=== PATIENT | female | born 1980 ===

== ENCOUNTER 2016-10-20 18:42 | Emergency (ER) | payer OTHER ==
[2016-10-20 18:42] VITALS: BMI 40.3
[2016-10-20 21:06] VITALS: PULSE 77; RESP 18; O2SAT 99
[2016-10-20 21:46] LABS: URINE BACTERIA RARE (<OCC); URINE BILIRUBIN NEGATIVE (NEGATIVE); URINE BLOOD NEGATIVE (NEGATIVE); URINE COLOR Straw (YELLOW); URINE GLUCOSE (UA) NORMAL (Normal); URINE KETONE NEGATIVE (NEGATIVE); URINE LEUKOCYTE ESTERASE NEG Leu/uL (Negative); URINE PROTEIN NEGATIVE (NEGATIVE); URINE UROBILINOGEN NORMAL mg/dL (0.2-1.0)
[2016-10-20 23:19] VITALS: BP 140/70; TEMP 98
== END 2016-10-20 22:30 | disposition home or self-care (01) ==
LOC: C.ER 18:42
DX: N94.10 Unspecified dyspareunia (principal); R10.2 Pelvic and perineal pain

== ENCOUNTER 2016-12-04 13:11 | Emergency (ER) | payer OTHER ==
[2016-12-04 13:11] VITALS: BMI 40.3
--- NOTE | 2016-12-04 14:51 | C.PDOC ---
Time Seen by Provider: 12/04/16 13:44 Chief Complaint (Nursing): Abdominal Pain Past Medical History Vital Signs: Last Vital Signs Temp 98.6 F 12/04/16 13:27 Pulse 80 12/04/16 13:27 Resp 16 12/04/16 13:27 BP 141/81 12/04/16 13:27 Pulse Ox 98 12/04/16 13:27 - Medical History PMH: HTN (TAKES NO MEDS) Denies: Chronic Kidney Disease Family History: States: Unknown Family Hx - Social History Hx Tobacco Use: No Hx Alcohol Use: No Hx Substance Use: No - Immunization History Hx Tetanus Toxoid Vaccination: No Hx Influenza Vaccination: No Hx Pneumococcal Vaccination: No ED Course And Treatment O2 Sat by Pulse Oximetry: 98
[2016-12-04 15:34] LABS: SQUAMOUS EPITHIAL 1 /hpf (0-5); URINE BILIRUBIN NEGATIVE (NEGATIVE); URINE BLOOD NEGATIVE (NEGATIVE); URINE CLARITY Clear (Clear); URINE COLOR Yellow (YELLOW); URINE GLUCOSE (UA) NORMAL (Normal); URINE LEUKOCYTE ESTERASE NEG Leu/uL (Negative); URINE NITRATE NEGATIVE (NEGATIVE); URINE PROTEIN NEGATIVE (NEGATIVE); URINE UROBILINOGEN NORMAL mg/dL (0.2-1.0)
[2016-12-04 15:37] LABS: HCG,QUALITATIVE URINE NEGATIVE (NEGATIVE)
[2016-12-04 15:42] LABS: BASO # 0.1 K/uL (0.0-0.2); BASO % 1.3 % (0.0-2.0); EOS # 0.1 K/uL (0.0-0.7); EOS % 1.3 % (0.0-4.0); HEMOGLOBIN 11.7 g/dL (11.0-16.0); LYMPH # 1.5 K/uL (1.0-4.3); LYMPH % 35.9 % (20.0-40.0); MEAN CELL VOLUME 86.8 fL (81.0-99.0); MEAN CORPUSCULAR HEMOGLOBIN 27.4 pg (27.0-31.0); MEAN CORPUSCULAR HGB CONC 31.6 g/dL (33.0-37.0); MEAN PLATELET VOLUME 9.7 fL (7.2-11.7); MONO # 0.4 K/uL (0.0-0.8); MONO % 10.2 % (0.0-10.0); NEUT # 2.1 K/uL (1.8-7.0); NEUT % 51.3 % (50.0-75.0); NRBC % 0.1 % (0.0-2.0); RBC 4.26 Mil/uL (3.80-5.20); RED CELL DISTRIBUTION WIDTH 13.6 % (11.5-14.5); WHITE BLOOD COUNT 4.1 K/uL (4.8-10.8)
[2016-12-04 15:49] LABS: ALBUMIN 3.5 g/dL (3.5-5.0)
[2016-12-04 15:52] LABS: ALT/SGPT 23 U/L (9-52); AST/SGOT 17 U/L (14-36); BLOOD UREA NITROGEN 19 mg/dL (7-17); GFR AFRICAN-AMERICAN > 60; GFR NON-AFRICAN AMERICAN > 60
[2016-12-04 15:53] LABS: CALCIUM 8.3 mg/dl (8.6-10.4)
--- NOTE | 2016-12-04 16:19 | C.PDOC ---
History Of Present Illness Patient is a 36 y/o female that presents to the ED for evaluation of abnormal vaginal bleeding for the last several weeks. Patient reports being seen by OBGYN , and was started on control medication but pt states her bleeding still continues. Notes having ultrasound done at the time which shows she has fibroids. Patient also reports having associated lower abdominal cramping. Pt also reports taking Naprosyn for pain with no relief. Otherwise, denies any n/v/ d, back pain, urinary symptoms, fever, chills, or any other associated symptoms at this time. Time Seen by Provider: 12/04/16 13:44 Chief Complaint (Nursing): Abdominal Pain History Per: Patient History/Exam Limitations: no limitations Onset/Duration Of Symptoms: Days (several weeks) Current Symptoms Are (Timing): Still Present Radiation Of Pain To:: None Quality Of Discomfort: Cramping, "Pain" Associated Symptoms: denies: Fever, Chills, Nausea, Vomiting, Diarrhea, Loss Of Appetite, Back Pain, Chest Pain, Constipation, Urinary Symptoms Exacerbating Factors: None Alleviating Factors: None Recent travel outside of the [place]: No Additional History Per: Patient Abnormal Vaginal Bleeding: Yes Past Medical History Reviewed: Historical Data, Nursing Documentation, Vital Signs Vital Signs: Last Vital Signs Temp 98.6 F 12/04/16 13:27 Pulse 80 12/04/16 13:27 Resp 16 12/04/16 13:27 BP 141/81 12/04/16 13:27 Pulse Ox 98 12/04/16 16:22 - Medical History PMH: HTN (TAKES NO MEDS) Denies: Chronic Kidney Disease Family History: States: Unknown Family Hx - Social History Hx Tobacco Use: No Hx Alcohol Use: No Hx Substance Use: No - Immunization History Hx Tetanus Toxoid Vaccination: No Hx Influenza Vaccination: No Hx Pneumococcal Vaccination: No Review Of Systems Except As Marked, All Systems Reviewed And Found Negative. Constitutional: Negative for: Fever, Chills Gastrointestinal: Positive for: Abdominal Pain (lower abdomen). Negative for: Nausea, Vomiting, Diarrhea, Constipation Genitourinary: Positive for: Vaginal Bleeding. Negative for: Dysuria, Frequency , Hematuria Musculoskeletal: Negative for: Back Pain Physical Exam - Physical Exam Appears: Non-toxic, No Acute Distress Skin: Normal Color, Warm, Dry Head: Atraumatic, Normacephalic Eye(s): bilateral: Normal Inspection, EOMI Neck: Normal ROM, Supple Chest: Symmetrical, No Tenderness Cardiovascular: Rhythm Regular, No Murmur Respiratory: Normal Breath Sounds, No Rales, No Rhonchi, No Wheezing Gastrointestinal/Abdominal: Soft, No Tenderness, No Guarding, No Rebound Extremity: Normal ROM, No Deformity Neurological/Psych: Oriented x3, Normal Speech, Normal Cognition ED Course And Treatment - Laboratory Results Result Diagrams: 12/04/16 15:34 12/04/16 15:34 Lab Interpretation: No Acute Changes O2 Sat by Pulse Oximetry: 98 (on RA) Pulse Ox Interpretation: Normal Progress Note: Labs ordered and reviewed. Disposition - Disposition Disposition: HOME/ ROUTINE Disposition Time: 16:24 Condition: STABLE Additional Instructions: Follow up with your release manager or the clinic if symptoms continue. Prescriptions: traMADol [Ultram] 50 mg PO TID PRN #10 tab PRN Reason: Pain, Severe (8-10) Instructions: Uterine Fibroids (ED) Print Language: TRINIDADIAN - Clinical Impression Clinical Impression: Uterine fibroid, Dysfunctional uterine bleeding - Scribe Statement The provider has reviewed the documentation as recorded by the Angelaibrobbie Holland All medical record entries made by the Angelaibrobbie were at my direction and personally dictated by me. I have reviewed the chart and agree that the record accurately reflects my personal performance of the history, physical exam, medical decision making, and the department course for this patient. I have also personally directed, reviewed, and agree with the discharge instructions and disposition.
[2016-12-04 16:46] VITALS: BP 127/76; PULSE 77; RESP 18; TEMP 98; O2SAT 100
== END 2016-12-04 16:45 | disposition home or self-care (01) ==
LOC: C.ER 13:11
DX: D25.9 Leiomyoma of uterus, unspecified (principal); N93.8 Other specified abnormal uterine and vaginal bleeding

== ENCOUNTER 2016-12-26 09:16 | Day surgery (SDC) | payer OTHER, SELFPAY ==
[2016-12-20 12:54] VITALS: BMI 37.5
[2016-12-26] MEDS ORDERED: HYDROmorphone 0.5 mg/0.5 ml ISec IVP PRN (14:20)
[2016-12-26] MEDS ORDERED: Lactated Ringer's 1,000 ML IV ONE ×2 (14:20→16:30)
[2016-12-26] MEDS ORDERED: Propofol 10 mg/ml Inj (20 ML) ONE ×2 (14:27)
[2016-12-26] MEDS ORDERED: Midazolam 2 MG/2 ML VIAL ONE (14:32)
--- NOTE | 2016-12-26 15:04 | PCM.SURG1 ---
Surgeon's Initial Post Op Note - Surgeon's Notes Surgeon: Dr. Crum Geriatric Nurse Assistant: None Type of Anesthesia: General LMA Anesthesia Administered By: Dr. Finch Pre-Operative Diagnosis: 36 yo with Cervical polyp, submucosal leiomyoma, menorrhagia, irregular mentrual cycle and chronic pelvic pain Operative Findings: Cervical polyp 2 cm, Av uterus 12 wks gestation with Submucosal leiomyoma Post-Operative Diagnosis: Same as above Operation Performed: Polypectomy, Hysteroscopy Myomectomy, Fractional D and C Specimen/Specimens Removed: Cervical polyp, Submucous Leiomyoma, EMC, ECC Estimated Blood Loss: EBL {In ML}: 10 Blood Products Given: N/A Drains Used: No Drains Post-Op Condition: Good Date of Surgery/Procedure: 12/26/16 Time of Surgery/Procedure: 15:05
[2016-12-26 17:30] VITALS: RESP 18; O2SAT 96
[2016-12-26 18:01] VITALS: BP 119/69; PULSE 68; TEMP 97.8
--- NOTE | 2016-12-27 03:20 | OP ---
PROCEDURE DATE: 12/26/2016 PREOPERATIVE DIAGNOSES: A 36-year-old female with cervical polyp, submucosal leiomyoma, menorrhagia, irregular menstrual period and chronic pelvic pain. POSTOPERATIVE DIAGNOSES: A 36-year-old female with cervical polyp, submucosal leiomyoma, menorrhagia, irregular menstrual period and chronic pelvic pain. PROCEDURE: Polypectomy, hysteroscopy, myomectomy and fractional D and C. SURGEON: Dr. Geovanna Crum. ANESTHESIOLOGIST: Dr. Finch. TYPE OF ANESTHESIA: General LMA. FINDINGS: Anteverted uterus approximately 12 weeks gestation, admitted to have a submucosal leiomyoma as well as a cervical polyp. COMPLICATIONS: None. ESTIMATED BLOOD LOSS: 10 mL. IV FLUID INTAKE: 1000 mL. INTAKE AND OUTPUT: 400 mL. SPECIMEN: Cervical polyp, leiomyoma, EMC and ECC. DESCRIPTION OF PROCEDURE: The patient was informed of the risk factors, benefits and alternatives of the procedure. Risk factors included infection, bleeding, damage to the surrounding organs and tissues, complication from anesthesia and possible . After informed consent was obtained, she was then taken to the operating room, prepped and draped in normal sterile fashion, placed in the dorsal lithotomy position. A weighted speculum was placed in the vagina. The anterior lip of the cervix was grasped with single-tooth tenaculum. It was noted that she had a cervical polyp, a forceps was utilized to remove the cervical polyp. Several twisting were then removed. The cervical polyp was removed intact and submitted to pathology. In that particular entrance, the uterus was then dilated in which the scope was then introduced. It was noted and identified that she has a submucosal leiomyoma. The MyoSure device Reach was utilized in order to do the vaginal myomectomy. Under direct visualization, the submucosal leiomyoma was removed and excellent hemostasis was noted. Upon completion, the scope was then removed and a fractional D and C was then performed. The scope was reintroduced, making sure they were excellent with hemostasis. Upon completion, all instruments were removed from the vagina. Instrument and lap counts were correct x2. The patient was then taken to recovery room in stable condition and instructed to follow up in the office in approximately 2 weeks. Geovanna Crum MD [facility] # [id number]
== END 2016-12-26 18:00 | disposition home or self-care (01) ==
LOC: C.SDS 09:16
PROVIDERS: ATTEND Obstetrics & Gynecology
DX: D25.0 Submucous leiomyoma of uterus (principal); G89.29 Other chronic pain; N84.1 Polyp of cervix uteri; N92.0 Excessive and frequent menstruation with regular cycle
CPT/HCPCS: 58558; 88305; J1170; J2250; J2405; J2704; J3010; J7120

== ENCOUNTER 2017-04-18 11:35 | Emergency (ER) | payer SELFPAY ==
[2017-04-18 11:35] VITALS: BMI 37.5
[2017-04-18 11:54] VITALS: RESP 16; TEMP 98.8
[2017-04-18] MEDS ORDERED: Lactated Ringer's 1,000 ML IV ONE (12:36)
[2017-04-18 12:43] LABS: BASO % 0.7 % (0.0-2.0); EOS % 0.1 % (0.0-4.0); HEMATOCRIT 41.6 % (34.0-47.0); LYMPH # 0.9 K/uL (1.0-4.3); LYMPH % 20.8 % (20.0-40.0); MEAN CELL VOLUME 86.2 fL (81.0-99.0); MEAN CORPUSCULAR HEMOGLOBIN 28.6 pg (27.0-31.0); MEAN CORPUSCULAR HGB CONC 33.1 g/dL (33.0-37.0); MEAN PLATELET VOLUME 9.3 fL (7.2-11.7); MONO # 0.5 K/uL (0.0-0.8); MONO % 11.1 % (0.0-10.0); NRBC % 0.2 % (0.0-2.0); RED CELL DISTRIBUTION WIDTH 13.6 % (11.5-14.5); WHITE BLOOD COUNT 4.2 K/uL (4.8-10.8)
[2017-04-18] MEDS ORDERED: Lactated Ringer's 1,000 ML ONE (12:46)
[2017-04-18 12:47] LABS: URINE BILIRUBIN NEGATIVE (NEGATIVE); URINE COLOR Yellow (YELLOW); URINE GLUCOSE (UA) NORMAL (Normal); URINE KETONE NEGATIVE (NEGATIVE); URINE LEUKOCYTE ESTERASE NEG Leu/uL (Negative); URINE PROTEIN NEGATIVE (NEGATIVE); URINE UROBILINOGEN NORMAL mg/dL (0.2-1.0); WBC URINE 1 /hpf (0-5)
[2017-04-18 12:54] LABS: ALKALINE PHOSPHATASE 58 U/L (38-126); ALT/SGPT 29 U/L (9-52); AST/SGOT 20 U/L (14-36); BILIRUBIN,TOTAL 0.4 mg/dL (0.2-1.3); BLOOD UREA NITROGEN 10 mg/dL (7-17); CALCIUM 8.6 mg/dl (8.6-10.4); CARBON DIOXIDE 24 mmol/L (22-30); CHLORIDE 103 mmol/L (98-107); GFR AFRICAN-AMERICAN > 60; GLUCOSE,RANDOM 85 mg/dL (65-105); POTASSIUM 3.8 mmol/L (3.6-5.2); SODIUM 137 mmol/L (132-148); TOTAL PROTEIN 8.5 g/dL (6.3-8.3)
[2017-04-18 12:58] LABS: RBC URINE 5 /hpf (0-3); URINE BACTERIA RARE (<OCC)
[2017-04-18 12:58] LABS: INR 1.1
[2017-04-18 13:03] LABS: URINE BLOOD 1+ (NEGATIVE)
[2017-04-18 13:36] LABS: ALB/GLOB RATIO 0.9 (1.0-2.1)
--- NOTE | 2017-04-18 13:45 | C.PDOC ---
History Of Present Illness 36 year old female, whose PMHx includes fibroids and ovarian cysts, presents to the ED for evaluation of suprapubic abdominal pain which began around 1 week ago. Patient states she began her menstrual period on 04/10 and the bleeding has continued since its onset. She reports using around 3-5 pads per day. Patient also complains of generalized weakness and states she has found no relief from taking Tylenol and Advil. She denies fever, chills, nausea, vomiting , back pain, dysuria. Time Seen by Provider: 04/18/17 12:12 Chief Complaint (Nursing): Abdominal Pain History Per: Patient History/Exam Limitations: no limitations Onset/Duration Of Symptoms: Other (1 week ) Current Symptoms Are (Timing): Still Present Location Of Pain/Discomfort: Suprapubic Radiation Of Pain To:: None Quality Of Discomfort: "Pain" Associated Symptoms: denies: Fever, Chills, Nausea, Vomiting, Urinary Symptoms Additional History Per: Patient Abnormal Vaginal Bleeding: Yes Last Menstral Period: 04/10/17 Past Medical History Reviewed: Historical Data, Nursing Documentation, Vital Signs Vital Signs: Last Vital Signs Temp 98.8 F 04/18/17 11:38 Pulse 78 04/18/17 14:04 Resp 16 04/18/17 14:04 BP 136/74 04/18/17 14:04 Pulse Ox 98 04/18/17 14:04 - Medical History PMH: HTN (TAKES NO MEDS) Surgical History: No Surg Hx Family History: States: Unknown Family Hx - Social History Hx Tobacco Use: No Hx Alcohol Use: No Hx Substance Use: No - Immunization History Hx Tetanus Toxoid Vaccination: No Hx Influenza Vaccination: No Hx Pneumococcal Vaccination: No Review Of Systems Constitutional: Negative for: Fever, Chills Cardiovascular: Negative for: Chest Pain, Palpitations Respiratory: Negative for: Cough, Shortness of Breath Gastrointestinal: Positive for: Abdominal Pain (suprapubic). Negative for: Nausea, Vomiting Genitourinary: Positive for: Vaginal Bleeding. Negative for: Dysuria Musculoskeletal: Negative for: Back Pain Neurological: Negative for: Headache Physical Exam - Physical Exam Appears: Non-toxic, No Acute Distress Skin: Normal Color, Warm, Dry Head: Atraumatic, Normacephalic Eye(s): bilateral: Normal Inspection Oral Mucosa: Moist Neck: Supple Chest: Symmetrical, No Deformity, No Tenderness Cardiovascular: Rhythm Regular, No Murmur Respiratory: Normal Breath Sounds, No Rales, No Rhonchi, No Wheezing Gastrointestinal/Abdominal: Soft, Tenderness (suprapubic ), No Guarding, No Rebound Extremity: Normal ROM, Capillary Refill (less than 2 seconds ) Neurological/Psych: Oriented x3, Normal Speech, Normal Cognition Gait: Steady ED Course And Treatment - Laboratory Results Result Diagrams: 04/18/17 12:33 04/18/17 12:33 O2 Sat by Pulse Oximetry: 100 (on RA) Pulse Ox Interpretation: Normal Medical Decision Making Medical Decision Making: Impression: 36 year old female with suprapubic abdominal pain Plan: * Bloodwork * urinalysis * Lactated Ringers Solution IV * reassess and disposition Progress: Bloodwork, UA, Lactated Ringers IV Solution administered. Labs reviewed and unremarkable. normal H/H. No electrolyte abnormality. Re-Eval: patient resting in bed in no distress. She has no fever and vital signs are stable. Patient reports feeling the same. Abdomen is soft and nontender, no guarding or rebound; no signs of surgical pathology. Explained lab results and symptoms likely related to menstruation. Patient will be discharged and instructed to follow up Disposition Counseled Patient/Family Regarding: Studies Performed, Diagnosis, Need For Followup, Rx Given - Disposition Referrals: Rubia Emanuel MD [Medical Doctor] - Disposition: HOME/ ROUTINE Disposition Time: 14:00 Condition: GOOD Additional Instructions: Por favor tome medicamentos segn sea necesario para el dolor Por favor, lillian un seguimiento con shell mdico de cabecera para shree evaluacin adicional Prescriptions: Naproxen [Naprosyn] 1 tab PO BID PRN #25 tab PRN Reason: Pain Instructions: Menorrhagia (ED) Forms: Cerebrex (Citizen Of [place]) Print Language: POLISH - POA Present On Arrival: None - Clinical Impression Clinical Impression: Menorrhagia, Fibroid, Dysmenorrhea - PA / R D ENGINEER / Resident Statement MD/DO has reviewed & agrees with the documentation as recorded. - Scribe Statement The provider has reviewed the documentation as recorded by the Scribe (Esha Holland) All medical record entries made by the Scribe were at my direction and personally dictated by me. I have reviewed the chart and agree that the record accurately reflects my personal performance of the history, physical exam, medical decision making, and the department course for this patient. I have also personally directed, reviewed, and agree with the discharge instructions and disposition.
[2017-04-18 14:05] VITALS: BP 136/74; PULSE 78
[2017-04-18 17:31] VITALS: O2SAT 100
== END 2017-04-18 14:04 | disposition home or self-care (01) ==
LOC: C.ER 11:35
DX: D25.9 Leiomyoma of uterus, unspecified (principal); N92.0 Excessive and frequent menstruation with regular cycle; N94.6 Dysmenorrhea, unspecified
CPT/HCPCS: 80053; 81001; 83690; 84703; 85025; 85610; 85730; 96360; 99284; J7120

== ENCOUNTER 2017-07-03 06:04 | Inpatient (IN) | payer SELFPAY ==
[2017-06-30 10:48] VITALS: BMI 35.2
[2017-07-03] MEDS ORDERED: cefOXitin IV 1 gm in Dextrose 2 GM/100 ML BAG IVPB ONE (07:31)
[2017-07-03] MEDS ORDERED: Propofol 10 mg/ml Inj (20 ML) ONE (07:45)
[2017-07-03] MEDS ORDERED: Lidocaine Hydrochloride 5 ML INJ ONE (07:45)
[2017-07-03] MEDS ORDERED: Midazolam 2 MG/2 ML VIAL ONE (07:46)
[2017-07-03] MEDS ORDERED: Bacitracin Ointment 30 GM TUBE ONE (08:30)
[2017-07-03] MEDS ORDERED: Methylene Blue 10 mg/mL(10ml) IV ONE (08:57)
--- NOTE | 2017-07-03 10:23 | PCM.SURG1 ---
Surgeon's Initial Post Op Note - Surgeon's Notes Surgeon: dr beard Manager Enterprise Content Management: dr almeida Type of Anesthesia: General Endo Anesthesia Administered By: dr franco Pre-Operative Diagnosis: 36yr with pelvic pain and abnormal uterine bleeding Operative Findings: see the op reort Post-Operative Diagnosis: same with adesions Operation Performed: exploratory total hystrectomy and removal for adhesion Specimen/Specimens Removed: uterus. cerix. left tube Estimated Blood Loss: EBL {In ML}: 550 Blood Products Given: N/A Drains Used: No Drains Post-Op Condition: Good Date of Surgery/Procedure: 07/03/17 Time of Surgery/Procedure: 11:00
[2017-07-03] MEDS ORDERED: Lactated Ringer's 1,000 ML IV SCH (10:30)
[2017-07-03] MEDS ORDERED: cefOXitin IV 1 gm in Dextrose 1 GM/50 ML BAG IVPB SCH (10:30)
[2017-07-03] MEDS ORDERED: Lactated Ringer's 1,000 ML IV ONE (10:31)
[2017-07-03] MEDS: cefOXitin IV 1 gm in Dextrose 1 GM/50 ML BAG IVPB SCH ×2 (15:49→23:29)
[2017-07-03] MEDS: Oxycodone/Acetaminophen 5/325 mg Tab PO PRN ×2 (16:01→23:35)
[2017-07-04] MEDS: cefOXitin IV 1 gm in Dextrose 1 GM/50 ML BAG IVPB SCH (08:05)
[2017-07-04 08:43] LABS: ALT/SGPT 28 U/L (9-52); AST/SGOT 32 U/L (14-36); BLOOD UREA NITROGEN 10 mg/dL (7-17); CALCIUM 8.1 mg/dl (8.6-10.4); GFR AFRICAN-AMERICAN > 60; GFR NON-AFRICAN AMERICAN > 60
[2017-07-04 08:47] LABS: BASO % 0.1 % (0.0-2.0); LYMPH # 1.3 K/uL (1.0-4.3); LYMPH % 15.2 % (20.0-40.0); MEAN CELL VOLUME 86.6 fL (81.0-99.0); MEAN CORPUSCULAR HEMOGLOBIN 28.6 pg (27.0-31.0); MEAN PLATELET VOLUME 9.5 fL (7.2-11.7); MONO # 0.7 K/uL (0.0-0.8); MONO % 8.7 % (0.0-10.0); NEUT # 6.4 K/uL (1.8-7.0); RBC 3.47 Mil/uL (3.80-5.20); RED CELL DISTRIBUTION WIDTH 14.2 % (11.5-14.5)
[2017-07-04 08:56] LABS: HEMOGLOBIN 9.9 g/dL (11.0-16.0); WHITE BLOOD COUNT 8.4 K/uL (4.8-10.8)
[2017-07-04] MEDS: Oxycodone/Acetaminophen 5/325 mg Tab PO PRN (09:58)
[2017-07-05] MEDS: Oxycodone/Acetaminophen 5/325 mg Tab PO PRN ×2 (05:22→18:34)
[2017-07-05 07:41] LABS: BASO % 0.7 % (0.0-2.0); EOS % 0.8 % (0.0-4.0); HEMOGLOBIN 9.4 g/dL (11.0-16.0); LYMPH # 1.5 K/uL (1.0-4.3); MEAN CORPUSCULAR HEMOGLOBIN 29.4 pg (27.0-31.0); MEAN CORPUSCULAR HGB CONC 33.8 g/dL (33.0-37.0); MEAN PLATELET VOLUME 9.6 fL (7.2-11.7); MONO # 0.6 K/uL (0.0-0.8); MONO % 10.8 % (0.0-10.0); NEUT # 3.5 K/uL (1.8-7.0); NEUT % 61.7 % (50.0-75.0); NRBC % 0.1 % (0.0-2.0); RBC 3.21 Mil/uL (3.80-5.20); RED CELL DISTRIBUTION WIDTH 14.5 % (11.5-14.5); WHITE BLOOD COUNT 5.7 K/uL (4.8-10.8)
--- NOTE | 2017-07-05 08:12 | CP.PCM.PN ---
Subjective - Date & Time of Evaluation Date of Evaluation: 07/05/17 Time of Evaluation: 08:00 - Subjective Subjective: pt was seen at bed side, pain under control with pain meds, no n/v, tolerating deit, voiding, flatus+, bm+ abd soft, non tender inciosion clean and dry Objective - Vital Signs/Intake and Output Vital Signs (last 24 hours): Temp Pulse Resp BP Pulse Ox 98.4 F 88 20 92/56 L 99 07/05/17 06:00 07/05/17 06:00 07/05/17 06:00 07/05/17 06:00 07/05/17 06:00 - Medications Medications: Current Medications Docusate Sodium (Colace) 100 mg PO BID [facility] Last Admin: 07/04/17 17:40 Dose: 100 mg Hydromorphone/Sodium Chloride (Dilaudid Building Materials Sales Attendant) 6 mg IV Q4H PRN; Protocol PRN Reason: Pain, severe (8-10) Lactated Ringer's (Lactated Ringer's) 1,000 mls @ 125 mls/hr IV .Q8H [facility] Last Admin: 07/03/17 15:51 Dose: 125 mls/hr Ibuprofen (Motrin Tab) 600 mg PO Q4 PRN PRN Reason: Pain, Mild (1-3) Last Admin: 07/04/17 17:38 Dose: 600 mg Oxycodone/Acetaminophen (Percocet 5/325 Mg Tab) 2 tab PO Q4H PRN PRN Reason: Pain, severe (8-10) Stop: 07/06/17 10:19 Last Admin: 07/05/17 05:22 Dose: 2 tab - Labs Labs: 07/05/17 07:07 07/04/17 08:13 - GI/Abdominal Exam GI & Abdominal Exam: Soft, Normal Bowel Sounds Assessment and Plan - Assessment and Plan (Free Text) Assessment: 36 yr sp total hyatrectomy/left salpingectomy Plan: plan cont pain meds encourage ambulation cont post op care
[2017-07-05 16:14] VITALS: O2SAT 100
--- NOTE | 2017-07-05 18:27 | CP.PCM.DIS ---
Provider - Provider Date of Admission: 07/03/17 06:04 Attending physician: Braxton Jefferson MD Time Spent in preparation of Discharge (in minutes): 20 Diagnosis - Discharge Diagnosis (1) S/P abdominal hysterectomy Status: Acute Hospital Course - Lab Results Lab Results: Most Recent Lab Values WBC 5.7 K/uL (4.8-10.8) 07/05/17 07:07 RBC 3.21 Mil/uL (3.80-5.20) L 07/05/17 07:07 Hgb 9.4 g/dL (11.0-16.0) L 07/05/17 07:07 Hct 27.9 % (34.0-47.0) L 07/05/17 07:07 MCV 87.0 fL (81.0-99.0) 07/05/17 07:07 MCH 29.4 pg (27.0-31.0) 07/05/17 07:07 MCHC 33.8 g/dL (33.0-37.0) 07/05/17 07:07 RDW 14.5 % (11.5-14.5) 07/05/17 07:07 Plt Count 202 K/uL (130-400) 07/05/17 07:07 MPV 9.6 fL (7.2-11.7) 07/05/17 07:07 Neut % (Auto) 61.7 % (50.0-75.0) 07/05/17 07:07 Lymph % (Auto) 26.0 % (20.0-40.0) 07/05/17 07:07 Mckinley % (Auto) 10.8 % (0.0-10.0) H 07/05/17 07:07 Eos % (Auto) 0.8 % (0.0-4.0) 07/05/17 07:07 Baso % (Auto) 0.7 % (0.0-2.0) 07/05/17 07:07 Neut # (Auto) 3.5 K/uL (1.8-7.0) 07/05/17 07:07 Lymph # (Auto) 1.5 K/uL (1.0-4.3) 07/05/17 07:07 Mckinley # (Auto) 0.6 K/uL (0.0-0.8) 07/05/17 07:07 Eos # (Auto) 0.0 K/uL (0.0-0.7) 07/05/17 07:07 Baso # (Auto) 0.0 K/uL (0.0-0.2) 07/05/17 07:07 Sodium 134 mmol/L (132-148) 07/04/17 08:13 Potassium 3.6 mmol/L (3.6-5.2) 07/04/17 08:13 Chloride 101 mmol/L (98-107) 07/04/17 08:13 Carbon Dioxide 27 mmol/L (22-30) 07/04/17 08:13 Anion Gap 10 (10-20) 07/04/17 08:13 BUN 10 mg/dL (7-17) 07/04/17 08:13 Creatinine 0.8 mg/dL (0.7-1.2) 07/04/17 08:13 Est GFR ( Amer) > 60 07/04/17 08:13 Est GFR (Non-Af Amer) > 60 07/04/17 08:13 Random Glucose 90 mg/dL (65-105) 07/04/17 08:13 Calcium 8.1 mg/dl (8.6-10.4) L 07/04/17 08:13 Total Bilirubin 0.6 mg/dL (0.2-1.3) 07/04/17 08:13 AST 32 U/L (14-36) 07/04/17 08:13 ALT 28 U/L (9-52) 07/04/17 08:13 Alkaline Phosphatase 40 U/L (38-126) 07/04/17 08:13 Total Protein 6.0 g/dL (6.3-8.3) L 07/04/17 08:13 Albumin 3.0 g/dL (3.5-5.0) L D 07/04/17 08:13 Globulin 2.9 gm/dL (2.2-3.9) 07/04/17 08:13 Albumin/Globulin Ratio 1.0 (1.0-2.1) 07/04/17 08:13 Blood Type AB POSITIVE 07/03/17 07:02 Antibody Screen Negative 07/03/17 07:02 Discharge Exam - Head Exam Head Exam: ATRAUMATIC, NORMAL INSPECTION, NORMOCEPHALIC - Eye Exam Eye Exam: EOMI, Normal appearance, PERRL Pupil Exam: NORMAL ACCOMODATION, PERRL - GI/Abdominal Exam GI & Abdominal Exam: Normal Bowel Sounds - Rectal Exam Rectal Exam: NORMAL INSPECTION - Exam Exam: Circumcision, NORMAL INSPECTION External exam: NORMAL EXTERNAL EXAM Speculum exam: NORMAL SPECULUM EXAM Bimanual exam: NORMAL BIMANUAL EXAM - Neurological Exam Neurological exam: Alert, CN II-XII Intact, Normal Gait, Oriented x3, Reflexes Normal - Psychiatric Exam Psychiatric exam: Normal Affect, Normal Mood - Skin Skin Exam: Dry, Intact, Normal Color, Warm Discharge Plan - Follow Up Plan Condition: GOOD Disposition: HOME/ ROUTINE Instructions: Acute Abdominal Pain (DC), Acute Abdominal Pain (GEN)
--- NOTE | 2017-07-06 06:27 | CP.PCM.PN ---
Subjective - Date & Time of Evaluation Date of Evaluation: 07/06/17 Time of Evaluation: 06:30 - Subjective Subjective: pt was at bed side, pain undr control,no n/v, tolerating deit, voiding, min lochia, flatus + abd soft,non tender incision clean and dry ext no edema,no calf ten Objective - Vital Signs/Intake and Output Vital Signs (last 24 hours): Temp Pulse Resp BP Pulse Ox 98.4 F 78 20 106/69 100 07/06/17 00:00 07/06/17 00:00 07/06/17 00:00 07/06/17 00:00 07/05/17 16:00 Intake and Output: 07/05/17 07/06/17 18:59 06:59 Intake Total 660 Output Total 0 Balance 660 - Medications Medications: Current Medications Docusate Sodium (Colace) 100 mg PO BID [facility] Last Admin: 07/05/17 17:40 Dose: 100 mg Ferrous Sulfate (Feosol) 325 mg PO BID [facility] Last Admin: 07/05/17 17:41 Dose: 325 mg Hydromorphone/Sodium Chloride (Dilaudid Culinary Director) 6 mg IV Q4H PRN; Protocol PRN Reason: Pain, severe (8-10) Lactated Ringer's (Lactated Ringer's) 1,000 mls @ 125 mls/hr IV .Q8H [facility] Last Admin: 07/03/17 15:51 Dose: 125 mls/hr Ibuprofen (Motrin Tab) 600 mg PO Q4 PRN PRN Reason: Pain, Mild (1-3) Last Admin: 07/04/17 17:38 Dose: 600 mg Oxycodone/Acetaminophen (Percocet 5/325 Mg Tab) 2 tab PO Q4H PRN PRN Reason: Pain, severe (8-10) Stop: 07/06/17 10:19 Last Admin: 07/05/17 18:34 Dose: 2 tab - Labs Labs: 07/05/17 07:07 07/04/17 08:13 - GI/Abdominal Exam GI & Abdominal Exam: Soft, Tenderness (mild ten), Normal Bowel Sounds Assessment and Plan (1) S/P abdominal hysterectomy Status: Acute - Assessment and Plan (Free Text) Assessment: pod#3 s/p total hystrectomy Plan: plan dc home petcocet, prn motrin prn no sex f/u pmd in 2week if any fever call
--- NOTE | 2017-07-06 07:41 | OP ---
PROCEDURE DATE: 07/03/2017 PREOPERATIVE DIAGNOSES: A 36-year-old 3, para 2, with chronic pelvic pain and abnormal uterine bleeding. POSTOPERATIVE DIAGNOSES: A 36-year-old 3, para 2, with chronic pelvic pain and abnormal uterine bleeding, with a lot of adhesions. SURGEON: Braxton Jefferson MD. ARMORER TECHNICIAN: Juancho Calix MD, who was present throughout the surgery for exposure, retraction and helping with the hysterectomy. COMPLICATIONS: None. ESTIMATED BLOOD LOSS: 550 mL. PROCEDURE PERFORMED: Exploratory laparotomy, total abdominal hysterectomy, and left salpingectomy and lysis of adhesion. ANESTHESIA: General anesthesia. ANESTHESIOLOGIST: Dr. Norm Lewis. DESCRIPTION OF PROCEDURE: After informed consent was obtained, the patient was brought to the operating room, placed on the table, where general anesthesia was given. Once the anesthesia was given, the patient was prepped and draped in the normal sterile fashion. Betancur catheter was then inserted under sterile condition. After that, at the site of the previous skin incision, an incision was made with a knife, the subcutaneous cut with a Bovie. The fascia was excised with the curved Parker scissors. Then the rectus muscle was lifted up with two Allis scissors and was cut with a knife and the peritoneum was lifted up using then after that, the uterus was retracted, bladder blade was placed. It was found on the left side of the uterus that there were adhesions from the omentum to the uterus and it was taken out at the clear space with the Metzenbaum slowly. After that, when the adhesion was all taken out, then the anterior part of the uterus was adherent to the bladder. Adhesion was taken out with the Metzenbaum scissors too, very carefully, and all the adhesions were taken out put it in the uterus, it was exteriorized. The right tube and ovary cannot be visualized, and the left ovary looks normal. After that, the bowel was packed with four laps, wet laps. The round ligament on the left side was taken with LigaSure. The same thing was done on the right side. Then, the the left side, there was a window made on the left broad ligament and the left utero-ovarian ligament was cut, clamped, and suture ligated. After that, a window was made on the broad ligament on the right side too uterine artery on the left side was skeletonized, it was taken out with the side and the bladder was pushed down. It was completely pushed and cervix was long. After that the uterine artery on the left side was taken, and the right side, it was cut and clamped, and suture ligated. After that, the cardinal ligament was taken with the Kanwal, it was cut and suture ligated and the same thing was done on the right, and then another bite of the cervix was taken down and then the uterosacral ligament was taken, it was cut. After that, colpotomy was made with the scissors. The uterus and cervix was removed, sent to the pathology. was closed using 2-0 Vicryl in interrupted fashion and the uterosacral ligament was suspended by the . A lot of irrigation was done very careful about the ureter because of the distorted anatomy . After that, a lot of irrigation was done and found to be hemostatic. No bleeding and then the tube on the left side was taken with the LigaSure. Then, it was told the nurse to put methylene blue in the Betancur, but by mistake they gave it to the anesthesia, so the whole methylene blue was given through IV. There was no blue seen in the bladder but nothing in the . After that, a lot of irritation was done and found to be hemostatic. Then Javed-Seal was placed. After that peritoneum was closed using 2-0 Vicryl in running interlocking fashion. Muscle was closed using 2-0 Vicryl in running interlocking fashion. All the laps were removed. Fascia was closed using#1 Vicryl in nonlocking fashion. Subcutaneous tissue was closed with 0 Vicryl in interrupted fashion. Skin was closed with 3-0 Monocryl on straight needle. Patient tolerated the procedure well. Laps, sponge, and instruments counts correct x2. Braxton Jefferson MD
[2017-07-06 08:42] VITALS: BP 111/70; PULSE 93; RESP 18; TEMP 98.9
[2017-07-06] MEDS ORDERED: Influenza Vaccine 60 mcg/0.5 mL SYR (4YR UP) IM ONE (09:11)
== END 2017-07-06 10:45 | disposition home or self-care (01) | DRG 359 ==
LOC: C.9S 06:04 → C.4M 13:08
PROVIDERS: ADMIT Obstetrics & Gynecology; ATTEND Obstetrics & Gynecology
PROC: 0DNU0ZZ Release Omentum, Open Approach (ICD-10-PCS; 2017-07-03)
PROC: 0UT60ZZ Resection of Left Fallopian Tube, Open Approach (ICD-10-PCS; 2017-07-03)
PROC: 0UT90ZZ Resection of Uterus, Open Approach (ICD-10-PCS; principal; 2017-07-03 07:30)
DX: D25.0 Submucous leiomyoma of uterus (principal); D25.1 Intramural leiomyoma of uterus; N93.9 Abnormal uterine and vaginal bleeding, unspecified; D25.2 Subserosal leiomyoma of uterus; N73.6 Female pelvic peritoneal adhesions (postinfective); R10.2 Pelvic and perineal pain

== ENCOUNTER 2017-08-09 11:02 | Emergency (ER) | payer OTHER ==
[2017-08-09 11:12] VITALS: BMI 33.6
[2017-08-09] MEDS ORDERED: Sodium Chloride 0.9% 1,000 ML ONE (11:25)
[2017-08-09] MEDS: Sodium Chloride 0.9% 1,000 ML IV ONE (11:33)
[2017-08-09 11:37] LABS: BASO % 1.1 % (0.0-2.0); EOS # 0.1 K/uL (0.0-0.7); EOS % 1.6 % (0.0-4.0); HEMOGLOBIN 11.3 g/dL (11.0-16.0); LYMPH # 1.8 K/uL (1.0-4.3); MEAN CELL VOLUME 85.7 fL (81.0-99.0); MEAN CORPUSCULAR HEMOGLOBIN 28.3 pg (27.0-31.0); MEAN CORPUSCULAR HGB CONC 33.1 g/dL (33.0-37.0); MEAN PLATELET VOLUME 8.6 fL (7.2-11.7); MONO # 0.4 K/uL (0.0-0.8); MONO % 11.5 % (0.0-10.0); NEUT # 1.5 K/uL (1.8-7.0); NEUT % 37.8 % (50.0-75.0); RBC 3.98 Mil/uL (3.80-5.20); RED CELL DISTRIBUTION WIDTH 14.2 % (11.5-14.5); WHITE BLOOD COUNT 3.9 K/uL (4.8-10.8)
[2017-08-09 11:42] LABS: SQUAMOUS EPITHIAL 3 /hpf (0-5); URINE BILIRUBIN NEGATIVE (NEGATIVE); URINE BLOOD NEGATIVE (NEGATIVE); URINE CLARITY Clear (Clear); URINE COLOR Yellow (YELLOW); URINE GLUCOSE (UA) NORMAL (Normal); URINE LEUKOCYTE ESTERASE NEG Leu/uL (Negative); URINE PROTEIN NEGATIVE (NEGATIVE); URINE UROBILINOGEN NORMAL mg/dL (0.2-1.0)
[2017-08-09 12:05] LABS: ALBUMIN 3.8 g/dL (3.5-5.0); ALT/SGPT 21 U/L (9-52); AST/SGOT 18 U/L (14-36); BLOOD UREA NITROGEN 13 mg/dL (7-17); CALCIUM 9.1 mg/dl (8.6-10.4); GFR AFRICAN-AMERICAN > 60; GFR NON-AFRICAN AMERICAN > 60; LIPASE 156 U/L (23-300)
--- NOTE | 2017-08-09 12:10 | C.PDOC ---
History Of Present Illness 37 year old female was sent to the emergency department by Dr. Jefferson for evaluation of nausea, vomiting and decreased appetite for 3 weeks. Patient had a hysterectomy on Jul 03, and ever since then she has been having decreased appetite, nausea, and vomiting with some weight loss. Patient also reports an occasional abdominal pain, but no current pain with normal bowel movements. She denies any fever, chills or other medical complaints. PMD: Rubia Emanuel Time Seen by Provider: 08/09/17 11:14 Chief Complaint (Nursing): GI Problem History Per: Patient History/Exam Limitations: no limitations Onset/Duration Of Symptoms: Days (x3 weeks) Radiation Of Pain To:: None Associated Symptoms: Nausea, Vomiting. denies: Fever, Chills Past Medical History Reviewed: Historical Data, Nursing Documentation, Vital Signs Vital Signs: Last Vital Signs Temp 98.1 F 08/09/17 15:05 Pulse 88 08/09/17 15:05 Resp 16 08/09/17 15:05 BP 126/82 08/09/17 15:05 Pulse Ox 100 08/09/17 15:26 - Medical History PMH: HTN (TAKES NO MEDS) Denies: Chronic Kidney Disease Other Surgeries: hysterectomy - [facility] (07/03/17) RESECTION OF LEFT FALLOPIAN TUBE, OPEN APPROACH (07/03/17) RESECTION OF UTERUS, OPEN APPROACH (07/03/17) Family History: States: Unknown Family Hx - Social History Hx Tobacco Use: No Hx Alcohol Use: No Hx Substance Use: No - Immunization History Hx Tetanus Toxoid Vaccination: No Hx Influenza Vaccination: No Hx Pneumococcal Vaccination: No Review Of Systems Constitutional: Positive for: Weight loss. Negative for: Fever, Chills Gastrointestinal: Positive for: Nausea, Vomiting, Abdominal Pain (occasional) Genitourinary: Negative for: Dysuria Skin: Negative for: Rash Neurological: Negative for: Headache Physical Exam - Physical Exam Appears: Non-toxic, No Acute Distress Skin: Normal Color, Warm, Dry, No Diaphoretic, No Rash Head: Atraumatic, Normacephalic Eye(s): bilateral: Normal Inspection, PERRL, EOMI Nose: Normal Oral Mucosa: Moist Neck: Normal ROM Chest: Symmetrical Cardiovascular: Rhythm Regular, No Murmur Respiratory: Normal Breath Sounds, No Wheezing Gastrointestinal/Abdominal: Normal Exam, Soft, No Tenderness, Other (well healed suprapubic scar.) Back: Normal Inspection, No CVA Tenderness Extremity: Normal ROM (on all extremities.), No Tenderness, No Pedal Edema, No Deformity, No Swelling Neurological/Psych: Oriented x3, Normal Speech Gait: Steady ED Course And Treatment - Laboratory Results Result Diagrams: 08/09/17 11:32 08/09/17 11:32 Lab Interpretation: No Acute Changes O2 Sat by Pulse Oximetry: 100 (RA) Pulse Ox Interpretation: Normal Progress Note: 13:45 Abdomen/Pelvis CT. FINDINGS: LOWER THORAX: No visible consolidation, pleural effusion, or pneumothorax. Partially imaged calcification within the soft tissues of the left breast, nonspecific. LIVER: Unremarkable. GALLBLADDER AND BILE DUCTS: Contracted gallbladder appears otherwise unremarkable. PANCREAS: Unremarkable. SPLEEN: Unremarkable. ADRENALS: Unremarkable. KIDNEYS AND URETERS: The kidneys enhance symmetrically. No evidence of hydronephrosis or obstructing calculus. VASCULATURE: No aortic aneurysm. BOWEL: Stomach is nondistended. Lack of oral contrast limits evaluation for bowel pathology. Bowel loops appear within normal limits of caliber without evidence of obstruction. APPENDIX: The appendix is not identified. No secondary signs of acute appendicitis. PERITONEUM: No significant free fluid. No definite free air. LYMPH NODES: No bulky adenopathy identified. BLADDER: Unremarkable. REPRODUCTIVE: The uterus is not identified presumably due to hysterectomy. 4.1 x 6.2 cm cystic appearing lesion in the right lower quadrant with evidence of septation; correlate clinically for possibility of complex cyst, hydrosalpinx, etc. BONES : No acute osseous abnormality is detected. OTHER FINDINGS: None. IMPRESSION : Right lower quadrant cystic appearing lesion with evidence of septation; considerations include complex cyst, hydrosalpinx, etc. Recommend clinical correlation and pelvic ultrasound for further characterization. Interval hysterectomy. Nonspecific calcification partially imaged in the left breast. Recommend correlation with dedicated breast imaging. Additional findings as above. Medical Decision Making Medical Decision Making: Impression: Vomiting Plan: --Abd & Pelvis IV Contrast [CT] --CMP --Lipase --CBC w/ differential --Sodium Chloride 1,000 ml IV --Zofran Inj 4 mg IVP --Urinalysis Progress: All labs reviewed with unremarkable results. CT scan shows no acute pathology Reevaluation: [address] Jefferson and discussed lab and CT findings. No further workup needed. Patient can be discharged home. Patient appears well, nontoxic and in no distress. vital signs are stable. She will be discharged home and copy of CT report provided. Patient to follow up outpatient Disposition Counseled Patient/Family Regarding: Studies Performed, Diagnosis, Need For Followup - Disposition Referrals: Braxton Jefferson MD [Staff Provider] - Disposition: HOME/ ROUTINE Disposition Time: 15:03 Condition: GOOD Additional Instructions: Follow up with your primary medical doctor or clinic in 2-5 days for further evaluation. Return to the emergency department at any time if symptoms persist or worsen. Paul un seguimiento con shell mdico primario o clnica en 2-5 campbell para shree evaluacin adicional. Regrese al departamento de emergencia en cualquier momento si los sntomas persisten o empeoran. Instructions: Nausea and Vomiting, Adult (DC) Forms: [facility] (Trinidadian) Print Language: UKRAINIAN - POA Present On Arrival: None - Clinical Impression Clinical Impression: Nausea & vomiting - Scribe Statement The provider has reviewed the documentation as recorded by the Scribe Russell Forrester
[2017-08-09] MEDS ORDERED: Iodixanol 320 MG/ML 100 ML BOTTLE IV ONE (13:22)
--- NOTE | 2017-08-09 14:14 | CT ---
PROCEDURE: CT Abdomen and Pelvis with contrast HISTORY: lower abd/pelvic pain COMPARISON: CT of the abdomen and pelvis with contrast performed 06/02/15, pelvic ultrasound performed 02/13/17 TECHNIQUE: Contrast dose: 100 mL Visipaque Radiation dose: Total exam DLP = 785.32 mGy-cm. This CT exam was performed using one or more of the following dose reduction techniques: Automated exposure control, adjustment of the mA and/or kV according to patient size, and/or use of iterative reconstruction technique. FINDINGS: LOWER THORAX: No visible consolidation, pleural effusion, or pneumothorax. Partially imaged calcification within the soft tissues of the left breast, nonspecific. LIVER: Unremarkable. GALLBLADDER AND BILE DUCTS: Contracted gallbladder appears otherwise unremarkable. PANCREAS: Unremarkable. SPLEEN: Unremarkable. ADRENALS: Unremarkable. KIDNEYS AND URETERS: The kidneys enhance symmetrically. No evidence of hydronephrosis or obstructing calculus. VASCULATURE: No aortic aneurysm. BOWEL: Stomach is nondistended. Lack of oral contrast limits evaluation for bowel pathology. Bowel loops appear within normal limits of caliber without evidence of obstruction. APPENDIX: The appendix is not identified. No secondary signs of acute appendicitis. PERITONEUM: No significant free fluid. No definite free air. LYMPH NODES: No bulky adenopathy identified. BLADDER: Unremarkable. REPRODUCTIVE: The uterus is not identified presumably due to hysterectomy. 4.1 x 6.2 cm cystic appearing lesion in the right lower quadrant with evidence of septation; correlate clinically for possibility of complex cyst, hydrosalpinx, etc. BONES: No acute osseous abnormality is detected. OTHER FINDINGS: None. IMPRESSION: Right lower quadrant cystic appearing lesion with evidence of septation; considerations include complex cyst, hydrosalpinx, etc. Recommend clinical correlation and pelvic ultrasound for further characterization. Interval hysterectomy. Nonspecific calcification partially imaged in the left breast. Recommend correlation with dedicated breast imaging. Additional findings as above.
[2017-08-09 15:06] VITALS: BP 126/82; PULSE 88; RESP 16; TEMP 98.1; O2SAT 100
== END 2017-08-09 15:23 | disposition home or self-care (01) ==
LOC: C.ER 11:02
DX: R11.2 Nausea with vomiting, unspecified (principal); Z90.710 Acquired absence of both cervix and uterus
CPT/HCPCS: 74177; 80053; 81001; 83690; 85025; 96361; 96374; 99284; J2405; J7040; Q9967